=== PATIENT | male | born 1970 | race Caucasian/White ===

== ENCOUNTER 2016-09-17 14:28 | Emergency (ER) | payer OTHER ==
[2016-09-27] MEDS ORDERED: BACTRIM DS TAB1 EACH PO (10:44)
[2016-09-27] MEDS ORDERED: NORCO 5-325 TA1 EACH PO (10:44)
== END 2016-09-17 18:15 | disposition home or self-care (01) ==
LOC: ER1 14:28
DX: S29.012A Strain of muscle and tendon of back wall of thorax, initial encounter (principal); F17.210 Nicotine dependence, cigarettes, uncomplicated; X58.XXXA Exposure to other specified factors, initial encounter; Y93.01 Activity, walking, marching and hiking; Y92.828 Other wilderness area as the place of occurrence of the external cause
CPT/HCPCS: 71020; 72131; 96372; 99284; J1885

== ENCOUNTER 2016-09-20 12:39 | Emergency (ER) | payer OTHER ==
[2016-09-27] MEDS ORDERED: NORCO 5-325 TA1 EACH PO (10:44)
[2016-09-27] MEDS ORDERED: BACTRIM DS TAB1 EACH PO (10:44)
== END 2016-09-20 13:25 | disposition home or self-care (01) ==
LOC: ER1 12:39
DX: S61.011A Laceration without foreign body of right thumb without damage to nail, initial encounter (principal); F17.210 Nicotine dependence, cigarettes, uncomplicated; Z79.899 Other long term (current) drug therapy; W45.8XXA Other foreign body or object entering through skin, initial encounter
CPT/HCPCS: 90471; 90715; 96372; 99283; J1335

== ENCOUNTER → 2016-09-27 | Day surgery (SDC) | payer OTHER ==
[~2016-09-27] VITALS: Ht 170.2 cm; Wt 78.0 kg
[~2016-09-27] MED LIST: BACTRIM DS TAB1 EACH PO; DALVANCE500 MG IV; NORCO 5-325 TA1 EACH PO
== END | disposition home or self-care (01) ==
LOC: OR 09-26 15:45
PROVIDERS: Orthopaedic Surgery
PROC: 0JBJ0ZZ Excision of Right Hand Subcutaneous Tissue and Fascia, Open Approach (ICD-10-PCS; principal; 2016-09-27 08:15)
DX: S61.441A Puncture wound with foreign body of right hand, initial encounter (principal); M54.5 Low back pain; G89.29 Other chronic pain; I10 Essential (primary) hypertension; F17.210 Nicotine dependence, cigarettes, uncomplicated; Z79.899 Other long term (current) drug therapy; W45.8XXA Other foreign body or object entering through skin, initial encounter; X15.8XXA Contact with other hot household appliances, initial encounter
CPT/HCPCS: 87070; 87077; 87186; 87205; J0690; J2250; J3370; J7120

== ENCOUNTER 2016-10-02 07:56 | Inpatient (IN) | payer OTHER ==
[~2016-10-02] VITALS: Ht 170.2 cm; Wt 77.1 kg
[~2016-10-02 07:56] MED LIST changes: -DALVANCE500 MG IV
--- NOTE | 2016-10-03 09:33 | NUR ---
PATIENT VERB " KONG EMOTIONAL AND I DONT LIKE IT" PATIENT DEBRA EYES, LIPS QUIVERING. ENCOURAGE TO VENTILATE FEELINGS, GIVEN MEDICATION ORDERED. PATIENT RESTING COMFORTABLY AT THIS TIME
[2016-10-04 05:27] LABS: HEMOGLOBIN 13.8 gm/dl (14.0-17.5); RED BLOOD COUNT 4.58 M/UL (4.20-5.50); WHITE BLOOD COUNT 5.9 K/UL (4.5-11.0)
[2016-10-04 05:49] LABS: BUN/CREATININE RATIO 11 (0-10)
[2016-10-07] MEDS ORDERED: DALVANCE500 MG IV (12:37)
== END 2016-10-07 15:02 | disposition left against medical advice (07) | DRG 858 ==
LOC: OR 07:56 → M/S 12:30 → OR 15:18 → M/S 15:18
PROVIDERS: Internal Medicine Infectious Disease; ADMIT Orthopaedic Surgery
PROC: 05HA33Z Insertion of Infusion Device into Left Brachial Vein, Percutaneous Approach (ICD-10-PCS; principal; 2016-10-02 09:15)
PROC: B54NZZA Ultrasonography of Left Upper Extremity Veins, Guidance (ICD-10-PCS; principal; 2016-10-02 09:15)
PROC: 0JBJ0ZZ Excision of Right Hand Subcutaneous Tissue and Fascia, Open Approach (ICD-10-PCS; principal; 2016-10-02 09:15)
DX: T81.4XXA Infection following a procedure, initial encounter (principal); B95.7 Other staphylococcus as the cause of diseases classified elsewhere; F17.210 Nicotine dependence, cigarettes, uncomplicated; Z72.89 Other problems related to lifestyle; Z82.5 Family history of asthma and other chronic lower respiratory diseases; Z80.9 Family history of malignant neoplasm, unspecified; Z79.899 Other long term (current) drug therapy; F32.9 Major depressive disorder, single episode, unspecified; F41.9 Anxiety disorder, unspecified; Z59.0 Homelessness; Z63.5 Disruption of family by separation and divorce
CPT/HCPCS: 36415; 80053; 80061; 80202; 85025; 86140; 87070; 87205; J2250; J2270; J3010; J3370; J7070; J7120

== ENCOUNTER → 2016-10-08 | Outpatient (CLI) | payer OTHER ==
[~2016-10-08] VITALS: Ht 170.2 cm; Wt 74.8 kg
[~2016-10-08] MED LIST changes: +DALVANCE500 MG IV
== END ==
LOC: OPSV 09:16
DX: B99.9 Unspecified infectious disease (principal)
CPT/HCPCS: 96365; J0875; J7070

== ENCOUNTER → 2016-10-12 | Outpatient (CLI) | payer OTHER | LOC: OPSV 13:00 | DX: L08.9 Local infection of the skin and subcutaneous tissue, unspecified (principal) | CPT/HCPCS: G0463 ==

== ENCOUNTER 2020-12-13 12:45 | Emergency (ER) | payer OTHER ==
[~2020-12-13 12:45] MED LIST changes: +DOCUSATE SODIU1 EAC1 PO; +IBU600 MG PO; +PROTONIX40 MG PO; +ZYVOX600 MG PO
[2020-12-13] MEDS ORDERED: BACTRIM DS TAB1 EACH PO (15:12)
== END 2020-12-13 15:30 | disposition home or self-care (01) ==
LOC: ER1 12:45
DX: L02.415 Cutaneous abscess of right lower limb (principal); L03.115 Cellulitis of right lower limb; F17.200 Nicotine dependence, unspecified, uncomplicated
CPT/HCPCS: 10060; 99283

== ENCOUNTER 2020-12-15 20:22 | Emergency (ER) | payer OTHER | END 2020-12-16 20:48 | disposition home or self-care (01) | LOC: ER1 20:22 | DX: S31.20XD Unspecified open wound of penis, subsequent encounter (principal); F17.210 Nicotine dependence, cigarettes, uncomplicated; X58.XXXD Exposure to other specified factors, subsequent encounter | CPT/HCPCS: 99282 ==